=== PATIENT | male | born 1980 | race Caucasian/White ===

== ENCOUNTER 2022-01-02 16:38 | Inpatient (IN) | payer MEDICARE, MEDICAID, SELFPAY ==
[2022-01-02 17:14] VITALS: BP 136/99; PULSE 107; RESP 18; TEMP 36.6; O2SAT 99
[2022-01-02 17:16] VITALS: BMI 27.2
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
[2022-01-02 19:39] LABS: Lithium 0.23 mmol/L (0.60-1.20)
[2022-01-02] MEDS: Nicotine Polacrilex 2 MG GUM 4 MG BUCCAL (21:42)
[2022-01-02] MEDS: Lithium Carbonate ER 450 MG TABLET.ER PO (21:47)
[2022-01-02 21:50] VITALS: BP 132/92; PULSE 82; TEMP 36.4; O2SAT 96
--- NOTE | 2022-01-02 21:57 | PC.NURSE ---
patient is refusing EKG and HS seroquel
--- NOTE | 2022-01-02 22:02 | PC.NURSE ---
declining flu shot at this time
[2022-01-03] MEDS: Nicotine Polacrilex 2 MG GUM 4 MG BUCCAL ×6 (00:16→23:27)
[2022-01-03] MEDS: traZODone HCL 50 MG TABLET PO (01:28)
[2022-01-03 07:00] VITALS: BMI 26.6
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
[2022-01-03 08:31] LABS: MANUAL DIFF FLAG NO
[2022-01-03 08:44] LABS: Basophils Percent Auto 0.6 % (0-2); Eosinophils Absolute Auto 0.2 X10*3/uL (0.0-0.4); Eosinophils Percent Auto 2.6 % (0-4); Hematocrit 46.7 % (42.0-52.0); Hemoglobin 15.2 g/dl (14.0-18.0); Imm Gran Abs Auto 0.01 X10*3/uL (0.00-0.03); Imm Gran Pct Auto 0.1 % (0.0-0.4); Lymphocytes Absolute Auto 2.1 X10*3/uL (1.2-4.9); Lymphocytes Percent Auto 30.5 % (20-40); Mean Corpuscular HGB Conc 32.5 g/dl (31.0-36.0); Mean Corpuscular Hemoglobin 28.7 pg (27.0-33.0); Mean Corpuscular Volume 88.3 fL (80.0-98.0); Mean Platelet Volume 10.2 fL (9.4-12.4); Monocytes Absolute Auto 0.9 X10*3/uL (0.1-1.2); Monocytes Percent Auto 13.3 % (2-11); Neutrophils Absolute Auto 3.6 x10*3/uL (2.0-8.3); Neutrophils Percent Auto 52.9 % (45-73); Platelet Count 378 X10*3/uL (160-400); Red Blood Count 5.29 X10*6/uL (4.60-5.80); Red Cell Distribution Width 13.4 % (11.0-16.0); White Blood Count 6.9 X10*3/uL (4.8-10.8)
[2022-01-03] MEDS: Lithium Carbonate ER 450 MG TABLET.ER PO ×2 (08:45→21:31)
[2022-01-03 08:47] LABS: Estimated Average Glucose 105 mg/dL; Hemoglobin A1c % 5.3 %
[2022-01-03 08:54] LABS: Alanine Aminotransferase 36 U/L (0-40); Albumin Level 4.2 g/dL (3.5-5.0); Alkaline Phosphatase 56 U/L (39-117); Anion Gap 12 (12-20); Aspartate Amino Transferase 29 U/L (5-37); Bilirubin Total 0.3 mg/dL (0.0-1.0); Blood Urea Nitrogen 16 mg/dL (9-16); Calcium 9.7 mg/dL (8.4-10.2); Carbon Dioxide 24 mmol/L (22-29); Chloride 108 mmol/L (96-108); Cholesterol 169 mg/dL; Estimated Glomerular Filt Rate > 60; Glucose Fasting 100 mg/dL (60-99); HDL Cholesterol 37 mg/dL; LDL Cholesterol Calculated 112 mg/dl; Potassium 4.9 mmol/L (3.3-5.1); Sodium 139 mmol/L (135-145); Total Protein 6.8 g/dL (6.5-8.0); Triglycerides 100 mg/dL
[2022-01-03 09:17] LABS: Thyroid Stimulating Hormone 2.33 uIU/mL (0.32-4.0)
[2022-01-03 09:38] LABS: Folate 12.5 ng/mL (> or = 4.0); Vitamin B12 371 pg/mL (200-900)
[2022-01-03 10:00] VITALS: BP 152/90; PULSE 105; RESP 18; TEMP 36.3; O2SAT 100
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
--- NOTE | 2022-01-03 16:29 | MHC.CARE ---
Call from patient's therapist Bekah who stated that she received a call from patient that he is being discharged, she wanted team to know that he fired her and the outpatient psychiatrist and has nowhere to go. Advised her it does not appear that patient is discharging today or tomorrow based on his admission date. She will call the unit directly tomorrow.
[2022-01-03 19:37] VITALS: BP 122/87; PULSE 68; RESP 18; TEMP 36.2; O2SAT 97
[2022-01-04] MEDS: traZODone HCL 50 MG TABLET PO (00:54)
[2022-01-04] MEDS: Acetaminophen 325 MG TABLET 650 MG PO ×2 (00:57→11:51)
[2022-01-04] MEDS: Nicotine Polacrilex 2 MG GUM 4 MG BUCCAL ×5 (00:58→19:51)
[2022-01-04] MEDS: QUEtiapine Fumarate 50 MG TABLET PO (01:17)
[2022-01-04] MEDS: Lithium Carbonate ER 450 MG TABLET.ER PO ×2 (09:01→19:51)
[2022-01-04 09:05] VITALS: BP 164/88; PULSE 110; RESP 18; TEMP 36.6; O2SAT 99
[2022-01-04] MEDS: Cholecalciferol (Vitamin D3) 25 MCG TABLET PO (11:50)
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
[2022-01-04 19:55] VITALS: BP 136/100; PULSE 94; RESP 20; TEMP 36.7; O2SAT 96
[2022-01-05] MEDS: QUEtiapine Fumarate 50 MG TABLET 37.5 MG PO (00:49)
[2022-01-05] MEDS: traZODone HCL 50 MG TABLET PO (02:38)
[2022-01-05] MEDS: Nicotine Polacrilex 2 MG GUM 4 MG BUCCAL ×3 (02:38→17:25)
[2022-01-05 06:00] VITALS: BP 126/80; PULSE 80; RESP 16; TEMP 36.8; O2SAT 98
[2022-01-05] MEDS: Lithium Carbonate ER 450 MG TABLET.ER PO ×2 (09:23→23:38)
[2022-01-05] MEDS: Cholecalciferol (Vitamin D3) 25 MCG TABLET PO (09:23)
--- NOTE | 2022-01-05 13:53 | P.PNPSI_ITS ---
Subjective Subjective Date of Service: 01/05/22 Reason For Visit: Bipolar disorder Subjective Notes: Conditional Voluntary Interim History: the nursing staff reported the patient has been very lab I will, tearful at times but hyperverbal intrusive with poor sleep. He needs to be redirected due to his impulsiveness. On interview the patient remember me from a prior admission several years ago he remains with manic symptoms. Mental Status Exam Mental Status Exam Patient Appearance: Well Grooomed Patient Orientation: Person Level of Consciousness: Awake and Restless Patient Behavior: Talkative Mood Description: Labile Affect Description: Nervous Patient Cognition Impaired: No Ability to Follow Directions: Good Speech Pattern: Rapid Hallucinations: None Delusions: Grandiose Thought Process: Racing Thought Content: positive for Flight of Ideas and positive for Obsessional Thoughts Judgement: Fair Diagnostics Vital Signs (24Hr): Vital Signs - 24 hr 01/04/22 19:55 Temperature 98.1 F Pulse Rate 94 Respiratory Rate 20 Blood Pressure 136/100 H Pulse Oximetry 96 BMI result Body Mass Index 26.6 Labs Results: 01/03/22 08:00 01/03/22 08:00 Medications Medications Current Medications Acetaminophen (Acetaminophen 325 Mg Tablet) 650 mg PO Q6H PRN PRN Reason: Headache/Pain Mild Scale (1-3) Last Admin: 01/04/22 11:51 Dose: 650 mg Documented by: Al Hydroxide/Mg Hydroxide (Magnesium Hydrox/Alum Hydrox 30 Ml Oral.Susp) 30 ml PO Q6H PRN PRN Reason: Heartburn/Nausea [place] Carbonate ([place] Carbonate Er 450 Mg Tablet.Er) 450 mg PO BID [facility] Last Admin: 01/05/22 09:23 Dose: 450 mg Documented by: Magnesium Hydroxide (Milk Of Magnesia 30 Ml Oral.Susp) 30 ml PO DAILY PRN PRN Reason: Constipation Nicotine Polacrilex (Nicotine Polacrilex 2 Mg Gum) 4 mg BUCCAL Q2H PRN PRN Reason: Nicotine Cravings Last Admin: 01/05/22 11:23 Dose: 4 mg Documented by: Quetiapine Fumarate (Quetiapine Fumarate 50 Mg Tablet) 50 mg PO Q4H PRN PRN Reason: anxiety/restlessness Last Admin: 01/04/22 01:17 Dose: 50 mg Documented by: Quetiapine Fumarate (Quetiapine Fumarate 50 Mg Tablet) 37.5 mg PO BEDTIME [facility] Last Admin: 01/05/22 00:49 Dose: 37.5 mg Documented by: Trazodone HCl (Trazodone Hcl 50 Mg Tablet) 50 mg PO BEDTIME PRN PRN Reason: Insomnia Last Admin: 01/05/22 02:38 Dose: 50 mg Documented by: Vitamin D (Cholecalciferol (Vitamin D3) 25 Mcg Tablet) 25 mcg PO DAILY [facility] Last Admin: 01/05/22 09:23 Dose: 25 mcg Documented by: Allergies Allergies Allergy/AdvReac Type Severity Reaction Status Date / Time Penicillins [PENICILLINS] Allergy Unknown Rash Verified 01/04/22 22:56 haloperidol [From Haldol] AdvReac Intermediate Unknown Verified 01/04/22 22:58 olanzapine AdvReac Intermediate Involuntary Verified 01/04/22 22:58 Spasms Assessment & Plan Assessment & Plan (1) Bipolar affective disorder, currently manic, severe, with psychotic features: Status: Acute Code(s): F31.2 - Bipolar disorder, current episode manic severe with psychotic features Plan lithium 450 BID. pt will likely need a higher dose but is currently explicitly stating the max he will take is 450 BID. pt is prescribed seroquel as well but is currently not planning to take it regularly. encourage compliance. dispo pending stabilization. labs friday. I spent ____25__ minutes with the patient and/or on the patient floor today, greater than?50% of which was spent counseling/coordinating care. Reason for contiued inpatient stay Substantial Risk for: inability to function, rapid decompensation and med/psych decompensation
[2022-01-05 20:50] VITALS: BP 147/98; PULSE 80; RESP 15; TEMP 36.7; O2SAT 97
[2022-01-06] MEDS: Nicotine Polacrilex 2 MG GUM 4 MG BUCCAL ×3 (03:33→17:01)
[2022-01-06] MEDS: Ibuprofen 400 MG TABLET PO (03:34)
[2022-01-06] MEDS: Lithium Carbonate ER 450 MG TABLET.ER PO ×2 (08:37→22:07)
[2022-01-06] MEDS: Cholecalciferol (Vitamin D3) 25 MCG TABLET PO (08:37)
--- NOTE | 2022-01-06 12:53 | P.PNPSI_ITS ---
Subjective Subjective Date of Service: 01/06/22 Reason For Visit: Bipolar disorder Subjective Notes: Conditional Voluntary Interim History: The nursing staff reported that the patient was very angry, agitated and verbally abusive with the nurse since he wanted that his to visit him for several hours, at that moment there was an emergency in the unit and there was a patient in restraints. The nursing staff reports the patient continues to be grandiose and manic very labile. On interview, the patient asked to have his Kava Tea that he has brought him. I checked and it is contraindicated in the use of benzodiazepines and anti seizures. He agreed to taking 1 cup of tea a day. No safety concerns Mental Status Exam Mental Status Exam Patient Appearance: Appropriate Patient Orientation: Person Level of Consciousness: Awake Patient Behavior: Cooperative Mood Description: Elated Affect Description: Labile Patient Cognition Impaired: No Ability to Follow Directions: Good Speech Pattern: Clear Hallucinations: None Delusions: Grandiose Thought Process: Distracted Thought Content: positive for [place] Judgement: Fair Diagnostics Vital Signs (24Hr): Vital Signs - 24 hr 01/05/22 20:50 Temperature 98.1 F Pulse Rate 80 Respiratory Rate 15 Blood Pressure 147/98 H Pulse Oximetry 97 BMI result Body Mass Index 26.6 Labs Results: 01/03/22 08:00 01/03/22 08:00 Medications Medications Current Medications Acetaminophen (Acetaminophen 325 Mg Tablet) 650 mg PO Q6H PRN PRN Reason: Headache/Pain Mild Scale (1-3) Last Admin: 01/04/22 11:51 Dose: 650 mg Documented by: Al Hydroxide/Mg Hydroxide (Magnesium Hydrox/Alum Hydrox 30 Ml Oral.Susp) 30 ml PO Q6H PRN PRN Reason: Heartburn/Nausea [place] Carbonate ([place] Carbonate Er 450 Mg Tablet.Er) 450 mg PO BID [facility] Last Admin: 01/06/22 08:37 Dose: 450 mg Documented by: Magnesium Hydroxide (Milk Of Magnesia 30 Ml Oral.Susp) 30 ml PO DAILY PRN PRN Reason: Constipation Nicotine Polacrilex (Nicotine Polacrilex 2 Mg Gum) 4 mg BUCCAL Q2H PRN PRN Reason: Nicotine Cravings Last Admin: 01/06/22 06:16 Dose: 4 mg Documented by: Quetiapine Fumarate (Quetiapine Fumarate 50 Mg Tablet) 50 mg PO Q4H PRN PRN Reason: anxiety/restlessness Last Admin: 01/04/22 01:17 Dose: 50 mg Documented by: Quetiapine Fumarate (Quetiapine Fumarate 50 Mg Tablet) 37.5 mg PO BEDTIME [facility] Last Admin: 01/06/22 06:19 Dose: Not Given Documented by: Trazodone HCl (Trazodone Hcl 50 Mg Tablet) 50 mg PO BEDTIME PRN PRN Reason: Insomnia Last Admin: 01/05/22 02:38 Dose: 50 mg Documented by: Vitamin D (Cholecalciferol (Vitamin D3) 25 Mcg Tablet) 25 mcg PO DAILY [facility] Last Admin: 01/06/22 08:37 Dose: 25 mcg Documented by: Allergies Allergies Allergy/AdvReac Type Severity Reaction Status Date / Time Penicillins [PENICILLINS] Allergy Unknown Rash Verified 01/04/22 22:56 haloperidol [From Haldol] AdvReac Intermediate Unknown Verified 01/04/22 22:58 olanzapine AdvReac Intermediate Involuntary Verified 01/04/22 22:58 Spasms Assessment & Plan Assessment & Plan (1) Bipolar affective disorder, currently manic, severe, with psychotic f eatures: Status: Acute Code(s): F31.2 - Bipolar disorder, current episode manic severe with psychotic features Plan lithium 450 BID. pt will likely need a higher dose but is currently explicitly stating the max he will take is 450 BID. pt is prescribed seroquel as well but is currently not planning to take it regularly. encourage compliance. dispo pending stabilization. labs friday. I spent __20____ minutes with the patient and/or on the patient floor today, greater than?50% of which was spent counseling/coordinating care. Reason for contiued inpatient stay Substantial Risk for: inability to function, rapid decompensation and med/psych decompensation
[2022-01-06 13:34] VITALS: BP 155/102; PULSE 89; RESP 16; TEMP 36.6; O2SAT 97
[2022-01-06 18:00] VITALS: PULSE 99; TEMP 36.7
[2022-01-06] MEDS: QUEtiapine Fumarate 50 MG TABLET PO (22:08)
[2022-01-07 06:00] VITALS: BP 142/93; PULSE 102; RESP 18; TEMP 36.7; O2SAT 98
[2022-01-07] MEDS: Nicotine Polacrilex 2 MG GUM 4 MG BUCCAL ×3 (08:29→15:47)
[2022-01-07] MEDS: Cholecalciferol (Vitamin D3) 25 MCG TABLET PO (08:29)
[2022-01-07] MEDS: Lithium Carbonate ER 450 MG TABLET.ER PO ×2 (08:29→21:06)
[2022-01-07 09:28] LABS: Lithium 0.45 mmol/L (0.60-1.20)
[2022-01-07 09:35] LABS: Anion Gap 11 (12-20); Blood Urea Nitrogen 13 mg/dL (9-16); Calcium 9.7 mg/dL (8.4-10.2); Carbon Dioxide 25 mmol/L (22-29); Chloride 106 mmol/L (96-108); Creatinine Clr Calc Pharmacy 128.6; Estimated Glomerular Filt Rate > 60; Glucose Random 98 mg/dL (60-115); Potassium 4.6 mmol/L (3.3-5.1); Sodium 137 mmol/L (135-145)
--- NOTE | 2022-01-07 14:00 | P.PNPSI_ITS ---
Subjective Subjective Date of Service: 01/07/22 Reason For Visit: Bipolar disorder Interim History: pt seen with SW and security present, as there was some concern about pt's volatile behavior earlier in the day. pt had been demanding discharge. pt was pressured in his speech, denying any reason that he should remain in the hospital. he denied being volatile even as he raised his voice. stated he could sign a 3-day notice if he liked and he declined, stating to his recollecti on he had already signed one. stated concern that pt's chiara was inadequately controlled for discharge and that higher doses of lithium would be required. pt refused to consider higher doses. in discussion with SW, plan was made to submit 3-day on patient's behalf today. 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 as MD made his way off the unit, pt began heckling and yelling at MD in the middle of the milieu, you're a fucking asshole! per staff, pt was hyperverbal yesterday, did not sleep last NOC, taking medications. very labile. security needed to be called to end the interview with his . grandiose, hypersexual. 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 adequately dressed, causally groomed. no PMA/PMR. cooperative. speech increased in rate and amount and loudness. nml tone. decr latency. thoughts tangential today. affect constricted, hyper-inte nse, labile. irritable/angry. no SI/HI/AVH expressed. Diagnostics Vital Signs (24Hr): Vital Signs - 24 hr 01/06/22 18:00 01/07/22 06:00 Temperature 98.0 F 98.0 F Pulse Rate 99 102 H Respiratory Rate 18 Blood Pressure 142/93 H Pulse Oximetry 98 BMI result Body Mass Index 26.6 Labs Results: 01/03/22 08:00 01/07/22 09:07 Labs: Laboratory Results - last 48 hr 01/07/22 01/07/22 09:07 09:07 Sodium 137 Potassium 4.6 Chloride 106 Carbon Dioxide 25 Anion Gap 11 L BUN 13 Creatinine 0.78 Estim Creat Clear Calc 128.6 Estimated GFR > 60 Random Glucose 98 Calcium 9.7 [place] 0.45 L Medications Medications Current Medications Acetaminophen (Acetaminophen 325 Mg Tablet) 650 mg PO Q6H PRN PRN Reason: Headache/Pain Mild Scale (1-3) Last Admin: 01/04/22 11:51 Dose: 650 mg Documented by: Al Hydroxide/Mg Hydroxide (Magnesium Hydrox/Alum Hydrox 30 Ml Oral.Susp) 30 ml PO Q6H PRN PRN Reason: Heartburn/Nausea [place] Carbonate ([place] Carbonate Er 450 Mg Tablet.Er) 450 mg PO BID [facility] Last Admin: 01/07/22 08:29 Dose: 450 mg Documented by: Magnesium Hydroxide (Milk Of Magnesia 30 Ml Oral.Susp) 30 ml PO DAILY PRN PRN Reason: Constipation Nicotine Polacrilex (Nicotine Polacrilex 2 Mg Gum) 4 mg BUCCAL Q2H PRN PRN Reason: Nicotine Cravings Last Admin: 01/07/22 11:09 Dose: 4 mg Documented by: Quetiapine Fumarate (Quetiapine Fumarate 50 Mg Tablet) 50 mg PO Q4H PRN PRN Reason: anxiety/restlessness Last Admin: 01/06/22 22:08 Dose: 50 mg Documented by: Quetiapine Fumarate (Quetiapine Fumarate 25 Mg Tablet) 37.5 mg PO BEDTIME [facility] Last Admin: 01/06/22 22:12 Dose: Not Given Documented by: Trazodone HCl (Trazodone Hcl 50 Mg Tablet) 50 mg PO BEDTIME PRN PRN Reason: Insomnia Last Admin: 01/05/22 02:38 Dose: 50 mg Documented by: Vitamin D (Cholecalciferol (Vitamin D3) 25 Mcg Tablet) 25 mcg PO DAILY [facility] Last Admin: 01/07/22 08:29 Dose: 25 mcg Documented by: Allergies Allergies Allergy/AdvReac Type Severity Reaction Status Date / Time Penicillins [PENICILLINS] Allergy Unknown Rash Verified 01/04/22 22:56 haloperidol [From Haldol] AdvReac Intermediate Unknown Verified 01/04/22 22:58 olanzapine AdvReac Intermediate Involuntary Verified 01/04/22 22:58 Spasms Assessment & Plan Assessment & Plan (1) Bipolar affective disorder, currently manic, severe, with psychotic features: Status: Acute Code(s): F31.2 - Bipolar disorder, current episode manic severe with psychotic features Plan lithium 450 BID. pt will likely need a higher dose but is currently explicitly stating the max he will take is 450 BID. pt is prescribed seroquel as well but is currently not planning to take it regularly. encourage compliance. dispo pending stabilization. labs 01/07 show lithium level of 0.45 and nml lytes. 3-day notice signed 01/07. I spent ___45___ minutes with the patient and/or on the patient floor today, greater than?50% of which was spent counseling/coordinating care. Reason for contiued inpatient stay Substantial Risk for: harm to others, inability to function and rapid decompensation
[2022-01-07 18:00] VITALS: BP 140/90; PULSE 104; RESP 18; TEMP 36.7; O2SAT 98
[2022-01-07] MEDS: QUEtiapine Fumarate 25 MG TABLET 37.5 MG PO (21:06)
[2022-01-08] MEDS: Nicotine Polacrilex 2 MG GUM 4 MG BUCCAL ×3 (07:46→15:56)
[2022-01-08 08:30] VITALS: BP 119/86; PULSE 104; RESP 17; TEMP 36.8; O2SAT 98
[2022-01-08] MEDS: Lithium Carbonate ER 450 MG TABLET.ER PO ×2 (08:37→22:01)
[2022-01-08] MEDS: Cholecalciferol (Vitamin D3) 25 MCG TABLET PO (08:38)
--- NOTE | 2022-01-08 17:22 | P.PNPSI_ITS ---
Subjective Subjective Date of Service: 01/08/22 Reason For Visit: Bipolar disorder Interim History: pt not irritable or hostile. pleasant and appropriate. pressured speech, asking about when he might leave. tangential. per staff, slept about 6 hours overnight. irritable with 1:1 staff. anxious he couldn't get in touch with his yesterday. agitated with peer. 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 adequately dressed, causally groomed. no PMA/PMR. cooperative. speech pressured. thoughts tangential. affect more flexible, normo-intense, non-labile. less irritable/angry. no SI/HI/AVH expressed. Diagnostics Vital Signs (24Hr): Vital Signs - 24 hr 01/07/22 18:00 01/08/22 08:30 Temperature 98.1 F 98.3 F Pulse Rate 104 H 104 H Respiratory Rate 18 17 Blood Pressure 140/90 H 119/86 Pulse Oximetry 98 98 BMI result Body Mass Index 26.6 Labs Results: 01/03/22 08:00 01/07/22 09:07 Labs: Laboratory Results - last 48 hr 01/07/22 01/07/22 09:07 09:07 Sodium 137 Potassium 4.6 Chloride 106 Carbon Dioxide 25 Anion Gap 11 L BUN 13 Creatinine 0.78 Estim Creat Clear Calc 128.6 Estimated GFR > 60 Random Glucose [address] [place] [address] [place] 0.45 L Medications Medications Current Medications Acetaminophen (Acetaminophen 325 Mg Tablet) 650 mg PO Q6H PRN PRN Reason: Headache/Pain Mild Scale (1-3) Last Admin: 01/04/22 11:51 Dose: 650 mg Documented by: Al Hydroxide/Mg Hydroxide (Magnesium Hydrox/Alum Hydrox 30 Ml Oral.Susp) 30 ml PO Q6H PRN PRN Reason: Heartburn/Nausea [place] Carbonate ([place] Carbonate Er 450 Mg Tablet.Er) 450 mg PO BID [facility] Last Admin: 01/08/22 08:37 Dose: 450 mg Documented by: Magnesium Hydroxide (Milk Of Magnesia 30 Ml Oral.Susp) 30 ml PO DAILY PRN PRN Reason: Constipation Nicotine Polacrilex (Nicotine Polacrilex 2 Mg Gum) 4 mg BUCCAL Q2H PRN PRN Reason: Nicotine Cravings Last Admin: 01/08/22 15:56 Dose: 4 mg Documented by: Quetiapine Fumarate (Quetiapine Fumarate 50 Mg Tablet) 50 mg PO Q4H PRN PRN Reason: anxiety/restlessness Last Admin: 01/06/22 22:08 Dose: 50 mg Documented by: Quetiapine Fumarate (Quetiapine Fumarate 25 Mg Tablet) 25 mg PO BEDTIME [facility] Quetiapine Fumarate (Quetiapine Fumarate 25 Mg Tablet) 25 mg PO BEDTIME PRN PRN Reason: insomnia Trazodone HCl (Trazodone Hcl 50 Mg Tablet) 50 mg PO BEDTIME PRN PRN Reason: Insomnia Last Admin: 01/05/22 02:38 Dose: 50 mg Documented by: Vitamin D (Cholecalciferol (Vitamin D3) 25 Mcg Tablet) 25 mcg PO DAILY [facility] Last Admin: 01/08/22 08:38 Dose: 25 mcg Documented by: Allergies Allergies Allergy/AdvReac Type Severity Reaction Status Date / Time Penicillins [PENICILLINS] Allergy Unknown Rash Verified 01/04/22 22:56 haloperidol [From Haldol] AdvReac Intermediate Unknown Verified 01/04/22 22:58 olanzapine AdvReac Intermediate Involuntary Verified 01/04/22 22:58 Spasms Assessment & Plan Assessment & Plan (1) Bipolar affective disorder, currently manic, severe, with psychotic features: Status: Acute Code(s): F31.2 - Bipolar disorder, current episode manic severe with psychotic features Plan lithium 450 BID. pt will likely need a higher dose but is currently explicitly stating the max he will take is 450 BID. pt is prescribed seroquel as well but is currently not planning to take it regularly. encourage compliance. dispo pending stabilization. labs 01/07 show lithium level of 0.45 and nml lytes. 3-day notice signed 01/07. I spent ___25___ minutes with the patient and/or on the patient floor today, greater than?50% of which was spent counseling/coordinating care. Reason for contiued inpatient stay Substantial Risk for: harm to others, inability to function and rapid decompensation
[2022-01-08] MEDS: QUEtiapine Fumarate 25 MG TABLET PO (22:02)
[2022-01-08 22:03] VITALS: BP 129/75; PULSE 107; TEMP 36.5; O2SAT 100
[2022-01-08] MEDS: traZODone HCL 50 MG TABLET PO (23:17)
[2022-01-09] MEDS: Nicotine Polacrilex 2 MG GUM 4 MG BUCCAL ×4 (05:33→21:01)
[2022-01-09 08:00] VITALS: BP 137/96; PULSE 91; RESP 18; TEMP 36.8; O2SAT 99
[2022-01-09] MEDS: Lithium Carbonate ER 450 MG TABLET.ER PO ×2 (08:35→21:00)
[2022-01-09] MEDS: Cholecalciferol (Vitamin D3) 25 MCG TABLET PO (08:35)
--- NOTE | 2022-01-09 14:38 | P.PNPSI_ITS ---
Subjective Subjective Date of Service: 01/09/22 Reason For Visit: Bipolar disorder Interim History: pt seen 1:1. angry to hear that he will not be discharged today, states his automobile insurance expires today and he will have to pay a penalty to get it reinstated. clearly angry but able to master his emotions without lashing out as he did friday. medds reviewed, reconciled, and prescribed. will plan to DC at 10 tomorrow. denies other problems at the moment, states he feels fine and ready to go. per staff, 3-day up tomorrow. reporting no anx/dep. i feel better today. no SI/HI/AVH. feeling he is being done wrong by staff and MD here. redirectable, grandiose, cheerful. 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 adequately dressed, causally groomed. no PMA/PMR. cooperative. speech pressured. thoughts tangential. affect constricted, hyper-intense, mod-labile. irritable/angry. no SI/HI/AVH expressed. Diagnostics Vital Signs (24Hr): Vital Signs - 24 hr 01/08/22 22:03 01/09/22 08:00 Temperature 97.7 F 98.3 F Pulse Rate 107 H 91 Respiratory Rate 18 Blood Pressure 129/75 137/96 H Pulse Oximetry 100 99 BMI result Body Mass Index 26.6 Labs Results: 01/03/22 08:00 01/07/22 09:07 Medications Medications Current Medications Acetaminophen (Acetaminophen 325 Mg Tablet) 650 mg PO Q6H PRN PRN Reason: Headache/Pain Mild Scale (1-3) Last Admin: 01/04/22 11:51 Dose: 650 mg Documented by: Al Hydroxide/Mg Hydroxide (Magnesium Hydrox/Alum Hydrox 30 Ml Oral.Susp) 30 ml PO Q6H PRN PRN Reason: Heartburn/Nausea [place] Carbonate ([place] Carbonate Er 450 Mg Tablet.Er) 450 mg PO BID [facility] Last Admin: 01/09/22 08:35 Dose: 450 mg Documented by: Magnesium Hydroxide (Milk Of Magnesia 30 Ml Oral.Susp) 30 ml PO DAILY PRN PRN Reason: Constipation Nicotine Polacrilex (Nicotine Polacrilex 2 Mg Gum) 4 mg [place]CCAL Q2H PRN PRN Reason: Nicotine Cravings Last Admin: 01/09/22 10:50 Dose: 4 mg Documented by: Quetiapine Fumarate (Quetiapine Fumarate 50 Mg Tablet) 50 mg PO Q4H PRN PRN Reason: anxiety/restlessness Last Admin: 01/06/22 22:08 Dose: 50 mg Documented by: Quetiapine Fumarate (Quetiapine Fumarate 25 Mg Tablet) 25 mg PO BEDTIME [facility] Last Admin: 01/08/22 22:02 Dose: 25 mg Documented by: Quetiapine Fumarate (Quetiapine Fumarate 25 Mg Tablet) 25 mg PO BEDTIME PRN PRN Reason: insomnia Trazodone HCl (Trazodone Hcl 50 Mg Tablet) 50 mg PO BEDTIME PRN PRN Reason: Insomnia Last Admin: 01/08/22 23:17 Dose: 50 mg Documented by: Vitamin D (Cholecalciferol (Vitamin D3) 25 Mcg Tablet) 25 mcg PO DAILY [facility] Last Admin: 01/09/22 08:35 Dose: 25 mcg Documented by: Allergies Allergies Allergy/AdvReac Type Severity Reaction Status Date / Time Penicillins [PENICILLINS] Allergy Unknown Rash Verified 01/04/22 22:56 haloperidol [From Haldol] AdvReac Intermediate Unknown Verified 01/04/22 22:58 olanzapine AdvReac Intermediate Involuntary Verified 01/04/22 22:58 Spasms Assessment & Plan Assessment & Plan (1) Bipolar affective disorder, currently manic, severe, with psychotic features: Status: Acute Code(s): F31.2 - Bipolar disorder, current episode manic severe with psychotic features Plan lithium 450 BID. pt will likely need a higher dose but is currently explicitly stating the max he will take is 450 BID. pt is prescribed seroquel as well but is currently not planning to take it regularly. encourage compliance. dispo pending stabilization. labs 01/07 show lithium level of 0.45 and nml lytes. 3-day notice signed 01/07. discharge 01/10 at 1000. I spent ___35___ minutes with the patient and/or on the patient floor today, greater than?50% of which was spent counseling/coordinating care. Reason for contiued inpatient stay Substantial Risk for: harm to others, inability to function and rapid decompensation
[2022-01-09 21:14] VITALS: BP 161/93; PULSE 95; RESP 18; TEMP 36.6; O2SAT 98
[2022-01-09] MEDS: Ibuprofen 400 MG TABLET PO (22:26)
[2022-01-10] MEDS: QUEtiapine Fumarate 50 MG TABLET PO (00:34)
[2022-01-10 08:21] VITALS: BP 146/99; PULSE 89; RESP 17; TEMP 36.6; O2SAT 99
[2022-01-10] MEDS: Lithium Carbonate ER 450 MG TABLET.ER PO (08:25)
[2022-01-10] MEDS: Cholecalciferol (Vitamin D3) 25 MCG TABLET PO (08:25)
[2022-01-10] MEDS: Nicotine Polacrilex 2 MG GUM 4 MG BUCCAL (08:35)
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
[2022-01-10 11:24] VITALS: BMI 28.1
== END 2022-01-10 11:36 | disposition home or self-care (01) | DRG 885 ==
PROVIDERS: Psychiatry & Neurology Psychiatry; Admitting Provider Psychiatry & Neurology Psychiatry; PCP Family Medicine; Visit Provider Psychiatry & Neurology Psychiatry
DX: F31.2 Bipolar disorder, current episode manic severe with psychotic features (principal); F43.10 Post-traumatic stress disorder, unspecified; F17.210 Nicotine dependence, cigarettes, uncomplicated; Z71.6 Tobacco abuse counseling; Z59.02 Unsheltered homelessness; Z88.0 Allergy status to penicillin; Z79.899 Other long term (current) drug therapy
CPT/HCPCS: 36415; 80048; 80053; 80061; 80178; 82607; 82746; 83036; 84439; 84443; 85025